=== PATIENT | female | born 1970 | race Caucasian/White ===

== ENCOUNTER → 2017-01-11 | Outpatient (CLI) | payer OTHER ==
[~2017-01-11] MED LIST: COLA100C2; COMP1TAB PO; DOCU100T8 PO; FLUC150T PO; LIDO5DIS; NAPR250T; OMEP20CA3 PO; PRAV40TA; PRAV40TA2 PO; PREG50CA PO; PRIL20CA; PROP10TA56 PO; PROZ20CA; PROZ20CA11 PO; SING10TA31; SING10TA32 PO; SYNT100T PO; SYNT125T; TIZA4CAP3 PO; VICO5TAB; VICO7.5T11 PO; ZANA4CAP; ZOLP12.515 PO
--- NOTE | 2017-01-11 16:18 | REP ---
Lumbar spine series: Five views. History: Lower back pain. Comparison lumbar spine radiographs August 11, 2013. Findings: The patient is status post L5-S1 fusion via transpedicular screws placed bilaterally at these levels as well as an intervertebral disc spacer. There is a mild L5-S1 grade 1, 3 mm spondylolisthesis, unchanged. Alignment is otherwise normal. Minimal disc space narrowing is seen at L4-5. Vertebral body heights are preserved. There are clips in right upper quadrant post cholecystectomy. A slightly opaque undigested tablet is seen in the stomach lumen. Pedicles and posterior elements are intact. Sacrum and SI joints are intact. Impression: Status post L5-S1 fusion. Minimal disc space narrowing L4-5. No significant change from the August 19, 2013 prior study. Signed by Adrian Damian MD 01/11/2017 06:00 P
== END ==
LOC: M LAB 12:16
PROVIDERS: ATTEND Family Medicine
DX: M54.5 Low back pain (principal); Z98.1 Arthrodesis status

== ENCOUNTER → 2017-06-07 | Outpatient (CLI) | payer OTHER ==
--- NOTE | 2017-06-07 11:13 | REP ---
Clinical: Arthritic pain . Technique: AP, lateral, bilateral oblique views. Findings: No acute fracture or dislocation. Skeletal structures and joint spaces are intact and normal. Ankle mortise appears stable. No subcutaneous emphysema or radiodense foreign body. Impression: Normal age-appropriate left ankle radiograph series. Signed by Dominic Lagos MD 06/07/2017 09:25 A
--- NOTE | 2017-06-07 11:13 | REP ---
Clinical: Osteoarthritis. Technique: Internal rotation, external rotation, and Y view of the right shoulder. Findings: Mild/moderate degenerative changes are appreciated including subtle blunting to the glenoid rim as well as a small osteophyte along the inferior margin of the humeral head. Acromioclavicular joint appears normal. Subacromial space is normal. No periarticular calcifications are identified. Impression: Mild/moderate degenerative changes at the glenohumeral joint. Consider MRI for further investigation if the patient remains symptomatic. Signed by Dominic Lagos MD 06/07/2017 09:25 A
== END ==
LOC: M RAD 08:14
PROVIDERS: ATTEND Family Medicine
DX: M19.011 Primary osteoarthritis, right shoulder (principal); M25.572 Pain in left ankle and joints of left foot

== ENCOUNTER → 2018-12-04 | Outpatient (CLI) | payer OTHER ==
[~2018-12-04] MED LIST changes: +TIZA4CAP PO; -TIZA4CAP3 PO
[2018-12-04 10:45] LABS: HEMATOCRIT 36.2 % (36.0-47.0); HEMOGLOBIN 11.3 g/dl (12.0-15.5); MEAN CORPUSCULAR HEMOGLOBIN 28.3 pg (27.0-33.0); MEAN CORPUSCULAR HGB CONC 31.2 g/dl (32.0-36.5); MEAN CORPUSCULAR VOLUME 90.7 fl (80.0-96.0); PLATELET COUNT, AUTOMATED 284 10^3/uL (150-450); RED BLOOD COUNT 3.99 10^6/uL (4.00-5.40); WHITE BLOOD COUNT 7.3 10^3/uL (4.0-10.0)
[2018-12-04 11:09] LABS: ERYTHROCYTE SEDIMENTATION RATE 26 mm/hr (0-20)
[2018-12-04 11:27] LABS: ALBUMIN 3.7 GM/DL (3.2-5.2); ALT/SGPT 28 U/L (12-78); BILIRUBIN,TOTAL 0.3 MG/DL (0.2-1.0); BLOOD UREA NITROGEN 10 MG/DL (7-18); C REACTIVE PROTEIN QUANTITATIV 1.54 MG/DL (0.00-0.30); CALCIUM LEVEL 8.9 MG/DL (8.5-10.1); CARBON DIOXIDE LEVEL 25 MEQ/L (21-32); CHLORIDE LEVEL 106 MEQ/L (98-107); CHOLESTEROL LEVEL 237 MG/DL (<200); CHOLESTEROL RISK RATIO 6.405 (<5); CREATININE FOR GFR 0.88 MG/DL (0.55-1.30); GLOMERULAR FILTRATION RATE > 60.0 (>58); GLUCOSE, FASTING 88 MG/DL (70-100); HDL CHOLESTEROL 37 MG/DL (>40); NON-HDL-C 200 MG/DL; POTASSIUM SERUM 4.3 MEQ/L (3.5-5.1); RHEUMATOID FACTOR QUANT 17.8 IU/ML (<15.0); SODIUM LEVEL 139 MEQ/L (136-145); TOTAL PROTEIN 6.8 GM/DL (6.4-8.2); TRIGLYCERIDES LEVEL 528 MG/DL (<150); URIC ACID 5.7 MG/DL (2.6-6.0)
[2018-12-04 11:29] LABS: HEMOGLOBIN A1c 5.7 %
[2018-12-06 00:07] LABS: ANTI DOUBLE STRAND-DNA AB 1 IU/mL (0-9); ANTINUCLEAR ANTIBODIES DIRECT Positive (Negative); Lyme Disease IgG/IgM Antibodie <0.91 ISR (0.00-0.90); Lyme Disease IgM Ab Quantitati <0.80 index (0.00-0.79); RNP ANTIBODIES <0.2 AI (0.0-0.9); SJOGREN'S ANTI SS-A <0.2 AI (0.0-0.9); SJOGREN'S ANTI SS-B 1.2 AI (0.0-0.9); SMITH ANTIBODIES <0.2 AI (0.0-0.9)
== END ==
LOC: M LAB 08:57
PROVIDERS: ATTEND Family Medicine
DX: R53.83 Other fatigue (principal)

== ENCOUNTER → 2019-04-13 | Outpatient (CLI) | payer OTHER ==
[~2019-04-13] MED LIST changes: +OMEP1CAP73 PO; -OMEP20CA3 PO; -VICO7.5T11 PO; +VICO7.5T12 PO
[2019-04-16 00:09] LABS: G6PD2 4.17 x10E6/uL (3.77-5.28); G6PD3 244 (146-376)
== END ==
LOC: M LAB 14:31
PROVIDERS: ATTEND Internal Medicine Rheumatology
DX: M05.79 Rheumatoid arthritis with rheumatoid factor of multiple sites without organ or systems involvement (principal)

== ENCOUNTER → 2019-09-15 | Outpatient (CLI) | payer OTHER ==
[~2019-09-15] MED LIST changes: +OMEP-172 PO; -OMEP1CAP73 PO
[2019-09-15 11:12] LABS: HEMATOCRIT 37.3 % (36.0-47.0); HEMOGLOBIN 11.5 g/dl (12.0-15.5); MEAN CORPUSCULAR HEMOGLOBIN 29.6 pg (27.0-33.0); MEAN CORPUSCULAR HGB CONC 30.8 g/dl (32.0-36.5); MEAN CORPUSCULAR VOLUME 96.1 fl (80.0-96.0); PLATELET COUNT, AUTOMATED 287 10^3/uL (150-450); RED BLOOD COUNT 3.88 10^6/uL (4.00-5.40); WHITE BLOOD COUNT 7.5 10^3/uL (4.0-10.0)
--- NOTE | 2019-09-15 11:22 | ECGEPIP ---
[facility] Test Date: 2019-09-15 Pat Name: MCKAYLA MARQUEZ Department: Room: - Gender: Female [employer]: YAA : 1970 Requested By: Eun Campbell Order Number: [id number] Reading MD: Sang Alcala Measurements Intervals Gore Rate: 56 P: 52 LA: 176 QRS: 24 QRSD: 86 T: 34 QT: 439 QTc: 426 Interpretive Statements SINUS BRADYCARDIA Low QRS complex voltage in the limb leads Similar to tracing done 11-24-14 Electronically Signed on 09-15-2019 11:22:20 EST by Sang Alcala
[2019-09-15 12:01] LABS: ALBUMIN 3.9 GM/DL (3.2-5.2); ALT/SGPT 31 U/L (12-78); BILIRUBIN,TOTAL 0.4 MG/DL (0.2-1.0); BLOOD UREA NITROGEN 11 MG/DL (7-18); CALCIUM LEVEL 9.1 MG/DL (8.5-10.1); CARBON DIOXIDE LEVEL 24 MEQ/L (21-32); CHLORIDE LEVEL 102 MEQ/L (98-107); CHOLESTEROL LEVEL 218 MG/DL (<200); CHOLESTEROL RISK RATIO 4.274 (<5); CREATININE FOR GFR 1.02 MG/DL (0.55-1.30); ESTRADIOL 56.5 PG/ML; FOLLICLE STIMULATING HORMONE 51.3 mIU/mL; GLOMERULAR FILTRATION RATE > 60.0 (>51); GLUCOSE, FASTING 92 MG/DL (70-100); HDL CHOLESTEROL 51 MG/DL (>40); LDL CHOLESTEROL 110 MG/DL (<100); LUTEINIZING HORMONE 34.5 mIU/mL; NON-HDL-C 167 MG/DL; POTASSIUM SERUM 4.3 MEQ/L (3.5-5.1); SODIUM LEVEL 136 MEQ/L (136-145); TOTAL 25(OH) VITAMIN D 41.8 NG/ML (30.0-100.0); TOTAL PROTEIN 6.9 GM/DL (6.4-8.2); TRIGLYCERIDES LEVEL 283 MG/DL (<150)
--- NOTE | 2019-09-15 14:09 | REP ---
REASON FOR EXAM: History of hypertension and fatigue. The latest prior for comparison is 03/02/2011. FINDINGS: The superior mediastinal structures are midline. The cardiac silhouette is unremarkable in size, shape, and position. The diaphragmatic surfaces of the lungs are regular, and the costophrenic angles are clear. The pulmonary gomez are clear. The imaged osseous structures are intact. IMPRESSION: There is no acute cardiopulmonary disease. Electronically Signed by Eduar Hutton DO 09/15/2019 03:28 P
== END ==
LOC: M LAB 09:50
PROVIDERS: ATTEND Family Medicine
DX: R53.83 Other fatigue (principal); I10 Essential (primary) hypertension; E03.9 Hypothyroidism, unspecified

== ENCOUNTER → 2019-09-21 | Outpatient (CLI) | payer OTHER ==
--- NOTE | 2019-09-21 14:21 | REP ---
Clinical: Bilateral knee pain. Technique: AP and lateral views of the right and left knee. Findings: Osseous structures, joint spaces, and surrounding soft tissues are symmetric and normal for age. No overt osteoarthritic degenerative changes are appreciated. No obvious effusion. No acute fracture dislocation. Impression: Age-appropriate bilateral knee radiographs. Electronically Signed by Dominic Lagos MD 09/21/2019 02:12 P
== END ==
LOC: M RAD 13:49
PROVIDERS: ATTEND Internal Medicine Rheumatology
DX: M25.561 Pain in right knee (principal); M25.562 Pain in left knee

== ENCOUNTER → 2019-11-18 | Outpatient (CLI) | payer OTHER ==
[~2019-11-18] MED LIST changes: -OMEP-172 PO; +OMEP1CAP73 PO
--- NOTE | 2019-11-18 14:36 | REP ---
Clinical: Neck pain. Arthritic changes. Technique: AP, lateral, flexion/extension, bilateral oblique and open mouth views of the cervical spine. Findings: Alignment and lordosis maintained. No acute fracture / compression injury or subluxation. Focal degenerative disc osteophyte complex at C5-6 includes anterior osteophyte, endplate sclerosis and disc space narrowing. And of the examination appears normal. Impression: Moderate focal degenerative spondylosis at C5-6. Electronically Signed by Dominic Lagos MD 11/18/2019 02:27 P
--- NOTE | 2019-11-18 14:38 | REP ---
Clinical: Pain. Technique: AP, lateral, bilateral oblique and coned-down views of the lumbosacral spine. Comparison: 01/11/2017 Findings: The patient is status post laminectomy and posterior fixation at the L5-S1 level. Remainder examination is normal. Impression: Stable postsurgical changes and appearance at L5-S1. Otherwise normal examination Electronically Signed by Dominic Lagos MD 11/18/2019 02:30 P
== END ==
LOC: M RAD 13:47
PROVIDERS: ATTEND Family Medicine
DX: M47.892 Other spondylosis, cervical region (principal); M43.27 Fusion of spine, lumbosacral region

== ENCOUNTER → 2020-04-08 | Outpatient (CLI) | payer MEDICARE ==
[~2020-04-08] MED LIST changes: +ACET25TA12 PO; +ALEV1TAB PO; +AMBI12.52 PO; +CVS10CAP8 PO; +ESTR1TAB; +FURO40TA2; +HYDR200T3; +LEVO100T5; +OMEGCAP4 PO; +OXYB5TAB10; +POTA1TAB21; +SIMV20TA22; -ZOLP12.515 PO; +ZOLP12.518 PO; +vitamin d3 PO
[2020-04-08 10:34] LABS: BASO % 0.4 % (0.0-1.0); EOS # 0.1 10^3/uL (0.0-0.5); EOS % 1.2 % (0.0-3.0); HEMATOCRIT 34.7 % (36.0-47.0); HEMOGLOBIN 10.7 g/dl (12.0-15.5); LYMPH # 4.5 10^3/uL (1.5-5.0); LYMPH % 52.7 % (24.0-44.0); MEAN CORPUSCULAR HEMOGLOBIN 29.1 pg (27.0-33.0); MEAN CORPUSCULAR HGB CONC 30.8 g/dl (32.0-36.5); MEAN CORPUSCULAR VOLUME 94.3 fl (80.0-96.0); MONO # 0.5 10^3/uL (0.0-0.8); MONO % 5.9 % (0.0-5.0); NEUTROPHILS # 3.4 10^3/uL (1.5-8.5); NEUTROPHILS % 39.6 % (36.0-66.0); PLATELET COUNT, AUTOMATED 313 10^3/uL (150-450); RED BLOOD COUNT 3.68 10^6/uL (4.00-5.40); WHITE BLOOD COUNT 8.5 10^3/uL (4.0-10.0)
== END ==
LOC: M LAB 09:13
PROVIDERS: ATTEND Internal Medicine Rheumatology
DX: R79.89 Other specified abnormal findings of blood chemistry (principal)

== ENCOUNTER 2020-04-15 10:24 | Emergency (ER) | payer MEDICARE ==
[~2020-04-15] VITALS: Ht 170.2 cm; Wt 91.0 kg
[~2020-04-15 10:24] MED LIST changes: -ACET25TA12 PO; -ALEV1TAB PO; -AMBI12.52 PO; -CVS10CAP8 PO; -ESTR1TAB; -FURO40TA2; -HYDR200T3; -LEVO100T5; -OMEGCAP4 PO; -OXYB5TAB10; -POTA1TAB21; -SIMV20TA22; -vitamin d3 PO
[2020-04-15] MEDS ORDERED: AMBI12.52 PO (11:12)
[2020-04-15] MEDS ORDERED: vitamin d3 PO (11:12)
[2020-04-15] MEDS ORDERED: HYDR200T3 (11:12)
[2020-04-15] MEDS ORDERED: OXYB5TAB10 (11:12)
[2020-04-15] MEDS ORDERED: ALEV1TAB PO (11:12)
[2020-04-15] MEDS ORDERED: ESTR1TAB (11:12)
[2020-04-15] MEDS ORDERED: CVS10CAP8 PO (11:12)
[2020-04-15] MEDS ORDERED: ACET25TA12 PO (11:12)
[2020-04-15] MEDS ORDERED: SIMV20TA22 (11:12)
[2020-04-15] MEDS ORDERED: LEVO100T5 (11:12)
[2020-04-15] MEDS ORDERED: FURO40TA2 (11:12)
[2020-04-15] MEDS ORDERED: OMEGCAP4 PO (11:12)
[2020-04-15] MEDS ORDERED: POTA1TAB21 (11:12)
[2020-04-15] MEDS ORDERED: KETOROLAC 60MG 2ML VIAL IM ONE (11:30)
--- NOTE | 2020-04-15 12:12 | REP ---
RIGHT SHOULDER, THREE VIEWS: Three views right shoulder performed. No fracture or dislocation is seen. Acromioclavicular joint appears wider than on the prior radiographs of 06/07/2017, probably from prior distal claviculectomy. There are moderate degenerative changes at the glenohumeral joint with spurring, joint space narrowing, and subchondral sclerosis. IMPRESSION: Degenerative changes glenohumeral joint with no fracture or dislocation. Electronically Signed by Rodney Miller MD 04/18/2020 09:31 A
--- NOTE | 2020-04-15 12:22 | REP ---
REASON: Neck pain and reticular symptoms. No trauma. CT cannot rule out disc extrusion. Vertebral body height and alignment is within normal limits. The facet joints are well aligned bilaterally. There is moderate disc space narrowing at C5-6 with slight anterior and posterior osteophytic ridging. There is no evidence of an acute fracture. There is no bony cause of foraminal narrowing or central canal stenosis to any significant degree. There is no abnormal paraspinal soft tissue swelling. IMPRESSION: No acute fracture. Chronic changes as described above. Electronically Signed by Eduar Hutton DO 04/15/2020 04:59 P
[2020-04-15] MEDS ORDERED: ANEXSIA, NORCO 7.5MG/325MG TABLET(HYDROCODONE/APAP) PO ONE (13:15)
[2020-04-15] MEDS ORDERED: LIDOCAINE 2% MDV 20ML VIAL SC ONE (13:15)
[2020-04-15 14:06] LABS: HEMATOCRIT 35.5 % (36.0-47.0); HEMOGLOBIN 11.2 g/dl (12.0-15.5); MEAN CORPUSCULAR HEMOGLOBIN 29.6 pg (27.0-33.0); MEAN CORPUSCULAR HGB CONC 31.5 g/dl (32.0-36.5); MEAN CORPUSCULAR VOLUME 93.9 fl (80.0-96.0); PLATELET COUNT, AUTOMATED 320 10^3/uL (150-450); RED BLOOD COUNT 3.78 10^6/uL (4.00-5.40); WHITE BLOOD COUNT 7.6 10^3/uL (4.0-10.0)
[2020-04-15 14:19] VITALS: BP 111/81
== END 2020-04-15 14:21 | disposition home or self-care (01) ==
LOC: M ED 10:24
DX: G89.29 Other chronic pain (principal); M54.2 Cervicalgia; J44.9 Chronic obstructive pulmonary disease, unspecified; F17.200 Nicotine dependence, unspecified, uncomplicated
CPT/HCPCS: 20552; 72125; 73030; 85027; 86850; 86900; 86901; 96372; 99283; J1885

== ENCOUNTER → 2020-05-05 | Outpatient (CLI) | payer MEDICARE ==
[~2020-05-05] MED LIST changes: +ACET25TA12 PO; +ALEV1TAB PO; +AMBI12.52 PO; +CVS10CAP8 PO; +ESTR1TAB; +FURO40TA2; +HYDR200T3; +LEVO100T5; +OMEGCAP4 PO; +OXYB5TAB10; +POTA1TAB21; +SIMV20TA22; +vitamin d3 PO
[2020-06-10 16:08] LABS: BASO % 0.2 % (0.0-1.0); EOS # 0.1 10^3/uL (0.0-0.5); EOS % 1.6 % (0.0-3.0); HEMOGLOBIN 11.3 g/dl (12.0-15.5); LYMPH # 4.4 10^3/uL (1.5-5.0); LYMPH % 53.4 % (24.0-44.0); MEAN CORPUSCULAR HEMOGLOBIN 29.3 pg (27.0-33.0); MEAN CORPUSCULAR HGB CONC 31.4 g/dl (32.0-36.5); MEAN CORPUSCULAR VOLUME 93.3 fl (80.0-96.0); MONO # 0.4 10^3/uL (0.0-0.8); MONO % 5.4 % (0.0-5.0); NEUTROPHILS # 3.2 10^3/uL (1.5-8.5); NEUTROPHILS % 39.3 % (36.0-66.0); PLATELET COUNT, AUTOMATED 295 10^3/uL (150-450); RED BLOOD COUNT 3.86 10^6/uL (4.00-5.40); WHITE BLOOD COUNT 8.2 10^3/uL (4.0-10.0)
== END ==
LOC: M LAB 14:50
PROVIDERS: ATTEND Internal Medicine Rheumatology
DX: R79.89 Other specified abnormal findings of blood chemistry (principal)

== ENCOUNTER → 2020-11-25 | Outpatient (CLI) | payer MEDICARE ==
[2020-11-25 11:36] LABS: BASO % 0.2 % (0.0-1.0); EOS # 0.3 10^3/uL (0.0-0.5); HEMATOCRIT 40.8 % (36.0-47.0); HEMOGLOBIN 13.1 g/dl (12.0-15.5); LYMPH # 4.1 10^3/uL (1.5-5.0); LYMPH % 49.3 % (24.0-44.0); MEAN CORPUSCULAR HEMOGLOBIN 33.1 pg (27.0-33.0); MEAN CORPUSCULAR HGB CONC 32.1 g/dl (32.0-36.5); MONO # 0.6 10^3/uL (0.0-0.8); MONO % 6.9 % (2.0-8.0); NEUTROPHILS # 3.3 10^3/uL (1.5-8.5); NEUTROPHILS % 40.1 % (36.0-66.0); PLATELET COUNT, AUTOMATED 248 10^3/uL (150-450); RED BLOOD COUNT 3.96 10^6/uL (4.00-5.40); WHITE BLOOD COUNT 8.2 10^3/uL (4.0-10.0)
[2020-11-25 12:06] LABS: ERYTHROCYTE SEDIMENTATION RATE 7 mm/hr (0-30)
[2020-11-25 12:28] LABS: ALT/SGPT 38 U/L (12-78); BLOOD UREA NITROGEN 13 MG/DL (7-18); CREATININE FOR GFR 0.93 MG/DL (0.55-1.30); GLOMERULAR FILTRATION RATE > 60.0 (>51)
== END ==
LOC: M LAB 10:50
PROVIDERS: ATTEND Internal Medicine Rheumatology
DX: Z79.899 Other long term (current) drug therapy (principal)

== ENCOUNTER → 2022-01-09 | Outpatient (CLI) | payer MEDICARE, OTHER ==
[~2022-01-09] MED LIST changes: -CVS10CAP8 PO; -FLUC150T PO; +FLUC150T9 PO; +MELA10CA6 PO
== END ==
LOC: M LAB 14:09
PROVIDERS: ATTEND Family Medicine
DX: M54.30 Sciatica, unspecified side (principal); Z51.81 Encounter for therapeutic drug level monitoring

== ENCOUNTER → 2023-04-12 | Outpatient (CLI) | payer MEDICARE, OTHER ==
[~2023-04-12] MED LIST changes: +E-Z-GAS II EFFERVESCENT PACKET (SODIUM BICARB./CITRIC ACID/SIMETHICONE) As Ordered ONE; +E-Z-HD 98% w/w 340GM SUSP BTL As Ordered ONE; +E-Z-PAQUE 96% w/w SUSP 176GM BTL As Ordered ONE; -HYDR200T3; +HYDR200T46; +MONT-5 PO; -SING10TA32 PO
== END ==
LOC: M RAD 08:07
PROVIDERS: ATTEND Family Medicine
DX: R10.9 Unspecified abdominal pain (principal); K27.9 Peptic ulcer, site unspecified, unspecified as acute or chronic, without hemorrhage or perforation

== ENCOUNTER → 2024-01-23 | Outpatient (CLI) | payer MEDICARE, MEDICAID ==
[~2024-01-23] MED LIST changes: -E-Z-GAS II EFFERVESCENT PACKET (SODIUM BICARB./CITRIC ACID/SIMETHICONE) As Ordered ONE; -E-Z-HD 98% w/w 340GM SUSP BTL As Ordered ONE; -E-Z-PAQUE 96% w/w SUSP 176GM BTL As Ordered ONE; -OXYB5TAB10; +OXYB5TAB14
== END ==
LOC: M RAD 14:30
PROVIDERS: ATTEND Pain Medicine Interventional Pain Medicine
DX: M54.12 Radiculopathy, cervical region (principal); M54.16 Radiculopathy, lumbar region; Z98.1 Arthrodesis status

== ENCOUNTER → 2024-06-19 | Outpatient (CLI) | payer MEDICARE, MEDICAID ==
[~2024-06-19] MED LIST changes: +PROHANCE 279.3MG/ML 15ML VIAL ONE; +PROHANCE 279.3MG/ML 5ML VIAL ONE; -ZOLP12.518 PO; +ZOLP12.535 PO
== END ==
LOC: M PLAIMG 14:07
PROVIDERS: ATTEND Orthopaedic Surgery Hand Surgery
DX: M25.572 Pain in left ankle and joints of left foot (principal)
CPT/HCPCS: 73723; A9576

== ENCOUNTER → 2024-10-09 | Outpatient (CLI) | payer MEDICARE, MEDICAID ==
[~2024-10-09] MED LIST changes: -PROHANCE 279.3MG/ML 15ML VIAL ONE; -PROHANCE 279.3MG/ML 5ML VIAL ONE
[2024-10-09 09:55] LABS: HEMATOCRIT 39.2 % (36.0-47.0); HEMOGLOBIN 13.1 g/dl (12.0-15.5); MEAN CORPUSCULAR HEMOGLOBIN 34.7 pg (27.0-33.0); MEAN CORPUSCULAR HGB CONC 33.4 g/dl (32.0-36.5); PLATELET COUNT, AUTOMATED 223 10^3/uL (150-450); RED BLOOD COUNT 3.77 10^6/uL (4.00-5.40); WHITE BLOOD COUNT 9.6 10^3/uL (4.0-10.0)
[2024-10-09 10:08] LABS: INR 0.85
[2024-10-09 10:20] LABS: ALBUMIN 4.2 G/DL (3.2-5.2); ALKALINE PHOSPHATASE 62 U/L (35-104); ALT/SGPT 41 U/L (7.0-40); AST/SGOT 33 U/L (<34); BILIRUBIN,TOTAL 0.3 MG/DL (0.3-1.2); BLOOD UREA NITROGEN 15 MG/DL (9-23); CALCIUM LEVEL 9.5 MG/DL (8.5-10.1); CARBON DIOXIDE LEVEL 27 MMOL/L (20-31); CHLORIDE LEVEL 106 MMOL/L (98-107); CHOLESTEROL LEVEL 239 MG/DL (<200); CHOLESTEROL RISK RATIO 5.48 (<5); CREATININE FOR GFR 0.82 MG/DL (0.55-1.30); GLOMERULAR FILTRATION RATE > 60.0 (>51); GLUCOSE, FASTING 91 MG/DL (60-100); HDL CHOLESTEROL 43.6 MG/DL (>40); NON-HDL-C 195.4 MG/DL; SODIUM LEVEL 139 MMOL/L (136-145); TOTAL PROTEIN 6.7 G/DL (5.7-8.2); TRIGLYCERIDES LEVEL 468 MG/DL (<150)
[2024-10-09 10:22] LABS: THYROID STIMULATING HORMONE 1.074 uIU/ML (0.55-4.78)
== END ==
LOC: M RAD 08:35
PROVIDERS: ATTEND Family Medicine
DX: Z01.818 Encounter for other preprocedural examination (principal); I10 Essential (primary) hypertension; R53.83 Other fatigue; Z79.899 Other long term (current) drug therapy

== ENCOUNTER 2024-10-28 09:05 | Day surgery (SDC) | payer MEDICARE, MEDICAID ==
[~2024-10-28] VITALS: Ht 165.1 cm; Wt 90.7 kg
[~2024-10-28 09:05] MED LIST changes: -ESTR1TAB; +ESTR1TAB PO; +FOLI1TAB11 PO; +HYDR-4431 PO; +HYDR200T46 PO; +INFL100V3 IV; +KETOROLAC 60MG 2ML VIAL As Ordered ONE; +LEUCOVORIN PO; +LIDOCAINE 2% 100MG/5ML SDV (FOR ANES.) As Ordered ONE; +MELO15TA28 PO; +METH5INJ IM; +MIDAZOLAM INJ 2MG/2ML VIAL As Ordered ONE; +ONDANSETRON 4MG 2ML VIAL As Ordered ONE; -OXYB5TAB14; +OXYB5TAB14 PO; -POTA1TAB21; +POTA1TAB21 PO; +PROC10TA5 PO; +SIMV20TA22 PO; +TORS20TA2 PO; +VITA100093 PO; +[UNRECOGNIZED DRUG - OTHER] PO; +fentaNYL 100 MCG/2 ML INJECTION As Ordered ONE; +propofoL 200 MG/20 ML VIAL As Ordered ONE
[2024-10-28] MEDS ORDERED: LR 1,000 ML IV SCH (09:50)
[2024-10-28] MEDS: ceFAZolin SOD 2 GM in IV 1 EA IV ONE (10:01)
[2024-10-28] MEDS: LIDOCAINE 1% MDV 20ML VIAL As Ordered ONE (10:03)
[2024-10-28] MEDS ORDERED: ACETAMINOPHEN 1000MG/100ML IV BAG As Ordered ONE (10:05)
[2024-10-28 11:01] VITALS: BP 127/70; TEMP 97.1; O2SAT 93
== END 2024-10-28 11:14 | disposition home or self-care (01) ==
LOC: M SDC 09:05
PROVIDERS: ATTEND Podiatrist Foot & Ankle Surgery
DX: D36.13 Benign neoplasm of peripheral nerves and autonomic nervous system of lower limb, including hip (principal); K21.9 Gastro-esophageal reflux disease without esophagitis; M79.7 Fibromyalgia; G43.909 Migraine, unspecified, not intractable, without status migrainosus; F32.A Depression, unspecified; Z92.21 Personal history of antineoplastic chemotherapy; Z79.899 Other long term (current) drug therapy; F17.210 Nicotine dependence, cigarettes, uncomplicated; E03.9 Hypothyroidism, unspecified; E04.0 Nontoxic diffuse goiter
CPT/HCPCS: 64788; 88305; J0131; J0665; J0690; J1100; J1885; J2250; J2405; J3010

== ENCOUNTER → 2025-01-29 | Outpatient (CLI) | payer MEDICARE, MEDICAID ==
[~2025-01-29] MED LIST changes: -AMBI12.52 PO; -KETOROLAC 60MG 2ML VIAL As Ordered ONE; -LIDOCAINE 2% 100MG/5ML SDV (FOR ANES.) As Ordered ONE; -MIDAZOLAM INJ 2MG/2ML VIAL As Ordered ONE; -ONDANSETRON 4MG 2ML VIAL As Ordered ONE; -PREG50CA PO; +PREG50CA87 PO; +ZOLP12.561 PO; -fentaNYL 100 MCG/2 ML INJECTION As Ordered ONE; -propofoL 200 MG/20 ML VIAL As Ordered ONE
[2025-01-29 16:06] LABS: HEMATOCRIT 38.2 % (36.0-47.0); HEMOGLOBIN 12.8 g/dl (12.0-15.5); MEAN CORPUSCULAR HGB CONC 33.5 g/dl (32.0-36.5); MEAN CORPUSCULAR VOLUME 101.6 fl (80.0-96.0); PLATELET COUNT, AUTOMATED 227 10^3/uL (150-450); RED BLOOD COUNT 3.76 10^6/uL (4.00-5.40); WHITE BLOOD COUNT 7.2 10^3/uL (4.0-10.0)
[2025-01-29 16:21] LABS: HEMOGLOBIN A1c 5.1 % (4.0-6.0)
[2025-01-29 16:40] LABS: ALBUMIN 4.1 G/DL (3.2-5.2); ALKALINE PHOSPHATASE 69 U/L (35-104); ALT/SGPT 33 U/L (7.0-40); AST/SGOT 36 U/L (<34); BILIRUBIN,TOTAL 0.4 MG/DL (0.3-1.2); BLOOD UREA NITROGEN 19 MG/DL (9-23); CARBON DIOXIDE LEVEL 24 MMOL/L (20-31); CHLORIDE LEVEL 103 MMOL/L (98-107); CHOLESTEROL LEVEL 258 MG/DL (<200); CHOLESTEROL RISK RATIO 5.74 (<5); CREATININE FOR GFR 0.85 MG/DL (0.55-1.30); GLOMERULAR FILTRATION RATE 80.9 (>51); GLUCOSE, FASTING 94 MG/DL (60-100); HDL CHOLESTEROL 44.9 MG/DL (>40); NON-HDL-C 213.1 MG/DL; POTASSIUM SERUM 4.2 MMOL/L (3.5-5.1); SODIUM LEVEL 137 MMOL/L (136-145); TOTAL PROTEIN 6.7 G/DL (5.7-8.2); TRIGLYCERIDES LEVEL 485 MG/DL (<150)
[2025-01-29 16:43] LABS: THYROID STIMULATING HORMONE 0.917 uIU/ML (0.55-4.78); TOTAL 25(OH) VITAMIN D 47.8 NG/ML (20.0-100.0)
== END ==
LOC: M LAB 15:38
PROVIDERS: ATTEND Family Medicine
DX: I10 Essential (primary) hypertension (principal); E03.9 Hypothyroidism, unspecified; R53.83 Other fatigue; Z79.899 Other long term (current) drug therapy

== ENCOUNTER → 2025-05-14 | Outpatient (CLI) | payer MEDICARE, MEDICAID ==
[~2025-05-14] MED LIST changes: -PRAV40TA2 PO; +PRAV40TA85 PO; -PROZ20CA11 PO; +PROZ20CA12 PO
[2025-05-14 12:19] LABS: VITAMIN B12 LEVEL > 2000 PG/ML (211-911)
== END ==
LOC: M LAB 11:10
PROVIDERS: ATTEND Student in an Organized Health Care Education/Training Program
DX: D75.89 Other specified diseases of blood and blood-forming organs (principal)

== ENCOUNTER → 2025-07-08 | Outpatient (CLI) | payer MEDICARE, MEDICAID ==
[2025-07-08 18:01] LABS: ALT/SGPT 30.0 U/L (7.0-40); AST/SGOT 21.0 U/L (<34)
== END ==
LOC: M PLALAB 15:17
PROVIDERS: ATTEND Physician Assistant
DX: N95.1 Menopausal and female climacteric states (principal)

== ENCOUNTER → 2025-08-18 | Outpatient (CLI) | payer MEDICARE, MEDICAID | LOC: M WHC 12:53 | PROVIDERS: ATTEND Physician Assistant | DX: Z12.31 Encounter for screening mammogram for malignant neoplasm of breast (principal); R92.323 Mammographic fibroglandular density, bilateral breasts ==

== ENCOUNTER → 2025-08-19 | Outpatient (CLI) | payer MEDICARE, MEDICAID | LOC: M RAD 14:49 | PROVIDERS: ATTEND Student in an Organized Health Care Education/Training Program | DX: Z87.891 Personal history of nicotine dependence (principal) ==